=== PATIENT | female | born 1960 | race Caucasian/White ===

== ENCOUNTER 2018-06-19 21:17 | Emergency (ER) | payer OTHER ==
[~2018-06-19] VITALS: Ht 152.4 cm; Wt 79.8 kg
[~2018-06-19 21:17] MED LIST: PIOG15TA2 PO; [UNRECOGNIZED DRUG - REMARK]
[2018-06-19 21:33] VITALS: BP 138/85
--- NOTE | 2018-06-19 21:33 | NUR ---
EVALUATED AT BEDSIDE BY DR ROSA. PT PRESENTS TO ED WITH BILAT FLANK PAIN WITH LEFT FLANK TENDERNESS. PT VSS AT THIS TIME. PAIN 10/10. PT STATES NO CHANGE IN URINATION AND NO VAGINAL DISCHARGE. NO LOWER ABD PAIN. VSS. CONTINUE TO MONITOR.
--- NOTE | 2018-06-19 21:33 | NUR ---
TO BED # 5 AMBULATORY, REPORT GIVEN TO DAVID LAL
[2018-06-19 22:29] LABS: APPEARANCE,URINE CLEAR (CLEAR); BILIRUBIN,URINE NEGATIVE (NEGATIVE); BLOOD, URINE NEGATIVE (NEGATIVE); COLOR,URINE YELLOW (YELLOW); LEUKOCYTE ESTERASE ,URINE NEGATIVE (NEGATIVE); NITRITE, URINE NEGATIVE (NEGATIVE); PH,URINE 6.5 (5.0-9.0); UGLUCOSE NEGATIVE (NEGATIVE)
[2018-06-19] MEDS ORDERED: HYDROcodone/APAP 5/325 MG 1 TAB TAB PO ONE (22:45)
[2018-06-19 22:55] VITALS: BP 138/85
--- NOTE | 2018-06-19 22:55 | NUR ---
Patient discharged with v/s stable. Written and verbal after care instructions given and explained. Patient alert, oriented and verbalized understanding of instructions. Ambulatory with steady gait. All questions addressed prior to discharge. ID band removed. Patient advised to follow up with PMD. Rx of Paul given. Patient educated on indication of medication including possible reaction and side effects. Opportunity to ask questions provided and answered.
== END 2018-06-19 22:55 | disposition home or self-care (01) ==
LOC: MED 21:17
DX: N20.0 Calculus of kidney (principal); E11.9 Type 2 diabetes mellitus without complications; Z79.899 Other long term (current) drug therapy; Z87.442 Personal history of urinary calculi
CPT/HCPCS: 81003; 99285